=== PATIENT | male | born 2000 | race Caucasian/White ===

== ENCOUNTER 2024-04-18 22:38 | Emergency (ER) | payer OTHER, SELFPAY ==
[2024-04-18 22:40] VITALS: BP 148/88; PULSE 108; RESP 18; TEMP 36.9; O2SAT 100
--- OUTSIDE RECORDS SUMMARY | 2024-04-18 22:40 | XMS_ITS | Referral Summary ---
Author Organization [facility] [address] Address [address] [place] [address] Phone Care Team Providers Care Barrel Bung Remover And Dumper Name Role Phone Gabbie Lema MD Primary Care Provider [phone]- [phone] Allergies Active Allergy Reactions Criticality Noted Date Comments Amoxicillin-Pot Clavulanate Rash Medium 01/25/20 14 Medications ascorbic acid (VITAMIN C) 250 mg tablet Take 250 mg by mouth daily Active dexmethylphenid ate XR (FOCALIN XR) 20 mg 24 hr capsule Take 20 mg by mouth car repairman before breakfast 5 Active dicyclomine (BENTYL) 20 mg tablet Take 20 mg by mouth 4 (four) times a day [address] (NexIUM) 20 mg capsule Take 20 mg by mouth daily before breakfast 5 Active methylphenidate HCl (RITALIN) 10 mg tablet TK 1 T PO BID PRN 0 Active sertraline (ZOLOFT) 50 mg tablet Take two tablets daily by mouth 5 Active SUMAtriptan (IMITREX) 50 mg tablet Take 50 mg by mouth daily as needed 5 Active lisdexamfetamin e (VYVANSE) 20 mg capsule Take 20 mg by mouth 2 (two) times a day as needed Active Active Problems Problem Noted Date Diagnosed Date Irritable bowel syndrome with constipation 05/12 Assessment & Plan (05/12/2020 1:36 PM HEALTH SERVICES COORDINATOR): Years of consti-pation with occ BRB on TP assoc with generalized abd pain assoc with stress. 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 Currently he has been eating no fiber and has C with sensation of incomplete evac but has begun daily metamucil with great improvement in sx. Had long discussion on diet and advised fruit tid and return prn. Abdominal bloating 09/08/2014 Gastric regurgitation 09/08/2014 Abdominal pain, RLQ (right lower quadrant) 04/04 Anxiety 04/04/2014 Hematochezia 04/04/2014 Hemorrhoids 04/04/2014 Short stature 01/01/2014 Headache 10/30/2007 Social History Tobacco Use Types Packs/Day Years Used Date Smoking Tobacco: Smoker, Current Status Unknown Vaping Smokeless Tobacco: Current AUDIT-C Answer Date Recorded Q1: How often do you have a drink containing alc ohol? Monthly or less 05/12/2020 Average Number of Drinks Not on file 021 Frequency of Binge Drinking Not on file 04/21 Personal Safety Answer Date Recorded Getting School Help Needed Not on file 05/20 Sex and Gender Information Value Date Recorded Sex Assigned at Not on file Legal Sex Male 1:44 PM CDT Gender Identity Not on file Sexual Orientation Not on file Last Filed Vital Signs Vital Sign Reading Time Taken Comments Blood Pressure 122/80 05/12/2020 1:14 PM HEALTH SERVICES COORDINATOR Pulse 86 05/12/2020 1:14 PM HEALTH SERVICES COORDINATOR Temperature 35.8 ??C (96.4 ??F) 05/12/2020 1:14 PM CS T Respiratory Rate 16 05/12/2020 1:14 PM HEALTH SERVICES COORDINATOR Oxygen Saturation 98% 05/12/2020 1:14 PM HEALTH SERVICES COORDINATOR Inhaled Oxygen Concentration - - Weight 78.5 kg (173 lb) 05/12/2020 1:14 PM HEALTH SERVICES COORDINATOR Height 165.1 cm (5' 5 ) 05/12/2020 1:14 PM HEALTH SERVICES COORDINATOR Body Mass Index 28.79 05/12/2020 1:14 PM HEALTH SERVICES COORDINATOR Plan of Treatment Not on file Insurance [facility] CHOICE PLUS Care Teams Barrel Bung Remover And Dumper Relationship Specialty Start Date End Date Gabbie Lema MD PCP - General Internal Medicine 08/21/19
--- OUTSIDE RECORDS SUMMARY | 2024-04-18 22:40 | XMS_ITS | Continuity of Care Document ---
Author Organization [facility] Address [address] [facility] [place] [address] Phone Care Team Providers Care Senior Clinician Name Role Phone Rashel Grace MD Unavailable Unavailable Allergies, Adverse Reactions, Alerts Substance Reaction Status Criticality POTASSIUM CLAVULANATE Active No Inf ormation AMOXICILLIN TRIHYDRATE Active No In formation Medications Medication Instructions Dosage Effective Dates (start - stop) Status Comments Ritalin 10 mg tablet take 1 Tablet by oral route 2 times every day as needed 10 MG - Active take BID PRN for poor focus Procedures Procedure Date OFFICE/OUTPATIENT VISIT, EST PREV VISIT, EST, AGE 18-39 OFFICE/OUTPATIENT VISIT, EST OFFICE/OUTPATIENT VISIT, EST OFFICE/OUTPATIENT VISIT, EST PREV VISIT, EST, AGE 18-39 OFFICE/OUTPATIENT VISIT, EST OFFICE/OUTPATIENT VISIT, EST OFFICE/OUTPATIENT VISIT, EST OFFICE/OUTPATIENT VISIT, EST PREV VISIT, EST, AGE 18-39 PREV VISIT, NEW, AGE 18-39 Advance Directives Directive Yes / No Effective Date File Name No Information Encounters Encounter Description Practice Location Reason(s) For Visit Diagnoses Date Provider Providers Copied on Encounter OFFICE/OUTPA TIENT VISIT, EST [facility], [address] [place], [id number], [place] tel:[phone] [facility] Medicine ADD (chief complaint) Attention deficit Sanjay Hernandez [address], [place], [place], [address] , [place]. tel:[phone] PREV VISIT, EST, AGE 18-39 [facility], [address], [place], [place], [address], [place] tel:[phone] [facility] Medicine physical (chief complaint) Encounter for general adult medical examination without abnormal findings 4 Sanjay Kiser. [address], [place], [place], [id number] , [place]. tel:[phone] OFFICE/OUTPA TIENT VISIT, EST [facility], [address], [place], [place], [id number], [place] tel:[phone] [facility] Medicine HLP (chief complaint) ADD (chief complaint) weight gain1 (chief complaint) Abnormal weight gainMixed hyperlipidemiaAtten tion deficit 4 Sanjay Hernandez [address], [place], [place], [id number] , [place]. tel:[phone] OFFICE/OUTPA TIENT VISIT, EST [facility], [address], [place], [place], [address], [place] tel:[phone] [facility] ADD (chief complaint) Attention deficit 3 Sanjay Kiser. [address], [place], [place], [address] , [place]. tel:[phone] OFFICE/OUTPA TIENT VISIT, EST [facility], [address], [place], [place], [address], [place] tel:[phone] [facility] Medicine ADD (chief complaint) Attention deficit 3 Sanjay Kiser. [address], [place], [place], [address] , [place]. tel:[phone] PREV VISIT, EST, AGE 18-39 [facility], [address], [place], [place], [address], [place] tel:[phone] [facility] Medicine physical (chief complaint) Encounter for general adult medical examination without abnormal findings 3 Sanjay Kiser. [address], [place], [place], [address] , [place]. tel:[phone] OFFICE/OUTPA TIENT VISIT, [facility], [address], [place], [place], [address], [place] tel:[phone] [facility] depression 1 (chief complaint) chlamydia1 (chief complaint) Chlamydial cystitis and urethritisDepressio n 2 Sanjay Kiser. [address], [place], [place], [address] , [place]. tel:[phone] OFFICE/OUTPA TIENT VISIT, [facility], [address], [place], [place], [address], [place] tel:[phone] [facility] chlamydia1 (chief complaint) HLP (chief complaint) Mixed hyperlipidemiaChlam ydial cystitis and urethritis 2 Sanjay Kiser. [address], [place], [place], [address] , [place]. tel:[phone] OFFICE/OUTPA TIENT VISIT, [facility], [address], [place], [place], [address], [place] tel:[phone] [facility] urethra itching1 (chief complaint) ADD (chief complaint) Attention deficitViral wartUrethral disorderEncounter for STD screening 2 Sanjay Kiser. [address], [place], [place], [address] , [place]. tel:[phone] OFFICE/OUTPA TIENT VISIT, [facility], [address], [address], [place] tel:[phone] [facility] skin lesion1 (chief complaint) depression 1 (chief complaint) ADD (chief complaint) weight gain1 (chief complaint) Abnormal weight gainViral wartDepressionAtten tion deficit 2 Sanjay Kiser. [address], [place], [place], [address] , [place]. tel:[phone] PREV VISIT, EST, AGE 18-39 [facility], [address], [place], [place], [address], [phone] [facility] Medicine physical (chief complaint) Encounter for general adult medical examination without abnormal findings 2 Sanjay Kiser. [address], [place], [place], [address] , . tel:[phone] PREV VISIT, NEW, AGE 18-39 [facility], [address], [place], [place], [address], [place] [phone] [facility] Medicine physical (chief complaint) Encounter for general adult medical examination without abnormal findings 0 Sanjay Kiser. [address], [place], [place], [address] , . tel:[phone] Family History Family Member Type Diagnosis Age At Onset Father Problem unknown Sister Problem autism Mother Problem Pre-DM Mother Problem Seizure disorder Mother Problem bipolar depression Payers Payer name Insurance type Covered republican ID Authoriza tion(s) No Information Social History Type Description Quantity Date Captured Comments Alcohol Use Details beer & liquor Caffeine Use Details Unknown Tobacco Use Status Occasional tobacco smoker De Smoking Status Light tobacco smoker Sex Male Vital Signs Date / Time: Height Weight BMI Pulse Rate Blood Pressure Temperature Respiratory Rate Body Surface Area Head Circumference BMI percentile Pulse Ox Inhaled Ox 12:03 PM 65.00 in 199.80 lbs 33.2 5 kg/m eter (2) 91 /min 130/78 mm[Hg] 98.2 F 16 /min Chief Complaint And Reason For Visit From encounter dated '02/22/2024 12:02'. ADD (chief complaint). Description: Patient has ADD. Patient has inattentive type. Patient feels scatterbrained. Patient feel poor focus and difficulty completing tasks. Patient states that ritalin is helping with symptoms. Patient feels more focused. Pt feels more energy. Patient denies any headache, dry mouth, headache, chest pain. Patient denies any appetite loss. Plan Of Treatment Date Type Action Status Referral Ordered: Matt Aranda -Allopathic & Osteopathic Physicians : Surgery (related to Viral wart) ordered Referral Referred To: Matt Aranda [address] [place], [place], [id number] Ordered: Referrals: Allopathic & Osteopathic Physicians : Surgery. Matt Aranda. Evaluate and treat ordered Referral Ordered: COLONOSCOPY AND BIOPSY ordered History Of Present Illness Encounter Date Complaint History Of Prese nt Illness ADD Patient has ADD. Patient has inattentive type. Patient feels scatterbrained. Patient feel poor focus and difficulty completing tasks. Patient states that ritalin is helping with symptoms. Patient feels more focused. Pt feels more energy. Patient denies any headache, dry mouth, headache, chest pain. Patient denies any appetite loss. physical Pt needs annual physical Pt has ADD Pt is back in school now and he wants to restart ritalin, He only takes it PRN. 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 Pt overall feels fine Pt denies any active complaints HLP Pt has mild HLP Pt is working on diet and exercse ADD Patient has ADD. Patient has inattentive type. Patient feels scatterbrained. Patient feel poor focus and difficulty completing tasks. Patient states that Ritalin is helping with symptoms. Patient feels more focused. Pt feels more energy. Patient denies any headache, dry mouth, headache, chest pain. Patient denies any appetite loss. 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 Pt states that ritalin is helping his ADD weight gain1 Pt has been gain ing weight Pt has not been diet and exercising . ADD Patient has ADD. Patient has inattentive type. Patient feels scatterbrained. Patient feel poor focus and difficulty completing tasks. Patient states that ritalin is helping with symptoms. Patient feels more focused. Pt feels more energy. Patient denies any headache, dry mouth, headache, chest pain. Patient denies any appetite loss. Pt only take s it PRN ADD Patient has ADD. Patient has inattentive type. Patient feels scatterbrained. Patient feel poor focus and difficulty completing tasks. Patient states that ritalin is helping with symptoms. Patient feels more focused. Pt feels more energy. Patient denies any headache, dry mouth, headache, chest pain. Patient denies any appetite loss. 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 Pt was treated with two rounds of abx and finally cleared .Pt denies any urinary symptoms depression1 Pt has been feel ing depressed lately ,pt denies any suicidal or homicidal thought. Pt denies any crying spells. Pt has poor interests and he has difficulty getting out of bed to get stuff done. chlamydia Pt has chlamydia infection Pt notices mild urethra itching only pt denies any penile discharge. Pt does not have any STDS. Pt denies any abd pain HLP Pt has mild HLP. Pt started better diet recently ADD Pt has ADD. Pt o nly takes ritalin PRn and he has not been in school so he has not been taking it lately. urethra itching1 Pt c/o mild itc katie along the urethra for one week. 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 Pt denies any penile discharge or any drainage Pt denies any penile lesions Pt denies any urinary frequency or urgency or dysuria. Pt denies any rash. Pt wants STD check. Pt denies any fever, chill, flank pain. 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 Pt since has been feeling well in his mood. Pt denies any anxiety or depression or any suicidal or homicidal thought. pt denies any crying spells. he was only 15 years old during last tour and he was discharged as a result. He did have severe separation anxiety back then and he did want to go home while in the training. . He currently wants to re-enlist in the and he needs some kind of note from physician stating above so he is qualified to be re-enlisted. weight gain1 Pt has been gain ing weight Pt is not very physically active skin lesion1 Pt has a lesion on right wrist area for 2 months Pt denies pain. Pt has been picking on it a lot and sometimes causes some bleeding Pt failed Dr Campbell. Pt denies any size change ADD Pt only takes ri maris PRN Pt doing ok. physical Pt needs annual physical. Pt has chronic bowel issue for more than 10 years Pt feels the urge to have BM all the time and he notices either mucous stool vs very hard stool when he does go and sometimes he just pass gas. He notices a small hemorrhoid sometimes. Pt has been taking miralax for BM. Pt notices small amount of bright red blood per rectum very rarely. pt denies any abd pain, nausea, vomiting, GERD, early satiety, etc. Pt did not do colonoscopy. Pt states that he has been using metamucil and eating more fruits and his above GI symptoms resolved. Pt also has history of ADD. Pt takes ritalin PRn and doing well. Pt wants refill. Pt notices a small warty lesion right wrist area for one week and he has been using Dr. Campbell which made it worse. Pt notices the lesion became red and burning and painful since using Dr. Campbell. Pt notices some clear drainage. Pt denies any fever physical Pt needs annual physical. Pt has chronic bowel issue for more than 10 years Pt feels the urge to have BM all the time and he notices either mucous stool vs very hard stool when he does go and sometimes he just pass gas. He notices a small hemorrhoid sometimes. Pt has been taking miralax for BM. Pt notices small amount of bright red blood per rectum very rarely. pt denies any abd pain, nausea, vomiting, GERD, early satiety, etc Pt also has history of ADD with mild depression. Pt used to take vyvanse back in high school. Pt denies any depression or any suicidal thought. pt denies any crying spells. Pt thinks that his mild depression is due to inability to focus and concentrate. Pt denies any weight loss Instructions Date Instruction Additional Infor mation No Information Assessments Type Assessment Date assessment Attention deficit Mental Status Date Cognitive Assessment Orientation - [place] ed to time, place, person, situation.
--- OUTSIDE RECORDS SUMMARY | 2024-04-18 22:40 | XMS_ITS | Clinical Summary ---
Author Organization [facility] [address] Address [address] [place] [address] Phone Care Team Providers Care Road Crossing Guard Name Role Phone Gabbie Lema MD Primary Care Provider [phone] Allergies Active Allergy Reactions Criticality Noted Date Comments Amoxicillin-Pot Clavulanate Rash Medium 01/25/20 14 Medications ascorbic acid (VITAMIN C) 250 mg tablet Take 250 mg by mouth daily Active dexmethylphenid ate XR (FOCALIN XR) 20 mg 24 hr capsule Take 20 mg by mouth third miller before breakfast 5 Active dicyclomine (BENTYL) 20 [...] 05/12 Assessment & Plan (05/12/2020 1:36 PM ROPEMAN): Years of consti-pation with occ BRB on [...] Hemorrhoids 04/04/2014 Short stature 01/01/2014 Headache 10/30/2007 Surgical History Surgery Date Site/Laterality Comments TONSILECTOMY, ADENOIDECTOMY, BILATERAL MYRINGOTOMY AND TUBES Family History Medical History Relation Name Comments Crohn's disease Mother's Sister Relation Name Status Comments Mother's Sister Social History Tobacco Use Types Packs/Day Years [...] on file Sexual Orientation Not on file Obstetrics History Last Filed Vital Signs Vital Sign Reading Time Taken Comments Blood Pressure 122/80 05/12/2020 1:14 PM ROPEMAN Pulse 86 05/12/2020 1:14 PM ROPEMAN Temperature 35.8 ??C (96.4 ??F) 05/12/2020 1:14 PM CS T Respiratory Rate 16 05/12/2020 1:14 PM ROPEMAN Oxygen Saturation 98% 05/12/2020 1:14 PM ROPEMAN Inhaled Oxygen Concentration - - Weight 78.5 kg (173 lb) 05/12/2020 1:14 PM ROPEMAN Height 165.1 cm (5' 5 ) 05/12/2020 1:14 PM ROPEMAN Body Mass Index 28.79 05/12/2020 1:14 PM ROPEMAN Plan of Treatment Not on file Insurance [facility] CHOICE PLUS [facility] H[facility]PPO Address: [facility] [address] [place] [address] Crossing Guard Relationship Specialty Start Date End Date Gabbie Lema MD PCP - General Internal Medicine 08/21/19
--- OUTSIDE RECORDS SUMMARY | 2024-04-18 22:40 | XMS_ITS | Clinical Summary ---
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 Gender Identity Not on file Sexual Orientation Not on file Plan of Treatment Health Maintenance Due Date Last Done Comments Hepatitis C Virus (HCV) Screening 1998 TdaP Immunization 1998 Human Papillomavirus (HPV) Immunization (1 - Male 3-dose series) 2013 Hepatitis B Immunization (1 of 3 - 19+ 3-dose series) 2017 Influenza Immunization (#1) 2023 SARS-COV-2 Immunization ( - 2023- season) 2023 Respiratory Syncytial Virus (RSV) Immunization (Adult) (1 - 1-dose 75+ series) 2073 Meningococcal Immunization (ACWY) Aged Out No longer eligible based on patient's age to complete this topic Pneumococcal Immunization Combined Aged Out No longer eligible based on patient's age to complete this topic Rotavirus Immunization Aged Out No lo nger eligible based on patient's age to complete this topic
[2024-04-19 00:55] VITALS: BP 142/88; PULSE 88; RESP 16; O2SAT 98
--- OUTSIDE RECORDS SUMMARY | 2024-04-19 00:58 | XMS_ITS | Clinical Summary ---
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
--- OUTSIDE RECORDS SUMMARY | 2024-04-19 00:58 | XMS_ITS | Referral Summary ---
Author Organization [facility] [address] Address [address] [place] [address] Phone Care Team Providers Care Drafting Instructor Name Role Phone Gabbie Lema MD Primary Care Provider [phone]- [phone] Allergies Active Allergy Reactions Criticality Noted Date Comments Amoxicillin-Pot Clavulanate Rash Medium 01/25/20 14 Medications ascorbic acid (VITAMIN C) 250 mg tablet Take 250 mg by mouth daily Active dexmethylphenid ate XR (FOCALIN XR) 20 mg 24 hr capsule Take 20 mg by mouth hotshot superintendent before breakfast 5 Active dicyclomine (BENTYL) 20 [...] 05/12 Assessment & Plan (05/12/2020 1:36 PM FISH WARDEN): Years of consti-pation with occ BRB on [...] Comments Blood Pressure 122/80 05/12/2020 1:14 PM FISH WARDEN Pulse 86 05/12/2020 1:14 PM FISH WARDEN Temperature 35.8 ??C (96.4 ??F) 05/12/2020 1:14 PM CS T Respiratory Rate 16 05/12/2020 1:14 PM FISH WARDEN Oxygen Saturation 98% 05/12/2020 1:14 PM FISH WARDEN Inhaled Oxygen Concentration - - Weight 78.5 kg (173 lb) 05/12/2020 1:14 PM FISH WARDEN Height 165.1 cm (5' 5 ) 05/12/2020 1:14 PM FISH WARDEN Body Mass Index 28.79 05/12/2020 1:14 PM FISH WARDEN Plan of Treatment Not on file Insurance [facility] CHOICE PLUS [facility] H[facility]/PPO Address: [facility] [id number] [place] [id number] Care Teams Drafting Instructor Relationship Specialty Start Date End Date Gabbie Lema MD PCP - General Internal Medicine 08/21/19
--- OUTSIDE RECORDS SUMMARY | 2024-04-19 00:58 | XMS_ITS | Clinical Summary ---
Author Organization [facility] [address] Address [address] [place] [address] Phone Care Team Providers Care Comp Field Case Manager Name Role Phone Gabbie Lema MD Primary Care Provider +1- [phone] Allergies Active Allergy Reactions Criticality Noted Date Comments Amoxicillin-Pot Clavulanate Rash Medium 01/25/20 14 Medications ascorbic acid (VITAMIN C) 250 mg tablet Take 250 mg by mouth daily Active dexmethylphenid ate XR (FOCALIN XR) 20 mg 24 hr capsule Take 20 mg by mouth engine inspector before breakfast 5 Active dicyclomine (BENTYL) 20 [...] 05/12 Assessment & Plan (05/12/2020 1:36 PM HVAC SERVICE TECHNICIAN): Years of consti-pation with occ BRB on [...] Comments Blood Pressure 122/80 05/12/2020 1:14 PM HVAC SERVICE TECHNICIAN Pulse 86 05/12/2020 1:14 PM HVAC SERVICE TECHNICIAN Temperature 35.8 ??C (96.4 ??F) 05/12/2020 1:14 PM CS T Respiratory Rate 16 05/12/2020 1:14 PM HVAC SERVICE TECHNICIAN Oxygen Saturation 98% 05/12/2020 1:14 PM HVAC SERVICE TECHNICIAN Inhaled Oxygen Concentration - - Weight 78.5 kg (173 lb) 05/12/2020 1:14 PM HVAC SERVICE TECHNICIAN Height 165.1 cm (5' 5 ) 05/12/2020 1:14 PM HVAC SERVICE TECHNICIAN Body Mass Index 28.79 05/12/2020 1:14 PM HVAC SERVICE TECHNICIAN Plan of Treatment Not on file Insurance [facility] CHOICE PLUS Care Teams Comp Field Case Manager Relationship Specialty Start Date End Date Gabbie Lema MD PCP - General Internal Medicine 08/21/19
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
--- NOTE | 2024-04-19 01:14 | ED.SKABFB ---
HPI - Skin/Abscess/Foreign Bdy General Chief complaint: Skin/Abscess/Foreign Body Stated complaint: suspected food bolus or scratch in throat Time Seen by Provider: 04/19/24 00:51 Source: patient Mode of arrival: ambulatory Limitations: no limitations History of Present Illness HPI narrative: This is a 23-year-old male who presents to the ED for chief complaint of possible food bolus impaction today. Reports that he was choking on a piece of steak around 1930. Patient reports that he was trying multiple ways to cough up the steak and does feel like he was somewhat successful. States that he has still has a little bit of pain to the epigastrium but is feeling much better than earlier. Related Data Home Medications ?Medication ?Instructions ?Recorded ?Confirmed ?Last Taken ?Type methylphenidate HCl 10 mg tablet 10 mg PO DAILY 02/20/20 03/18/20 Unknown History (Ritalin) Allergies Allergy/AdvReac Type Severity Reaction Status Date / Time amoxicillin Allergy Intermediate RASH Verified 04/18/24 22:39 clavulanic acid Allergy Intermediate RASH Verified 04/18/24 22:39 Review of Systems Review of Systems: All systems as dictated in HPI ON LICENSE OF [facility] Past Medical History Medical History (Updated 04/19/24 @ 01:32 by Doug Kathleen PA-C) Blood in stool Mucus in stool Constipation Surgical History Surgical History (Updated 02/20/20 @ 10:46 by Lucie Ordoñez) History of tonsillectomy Social History Social History (Updated 02/20/20 @ 10:45 by Lucie Ordoñez) Smoking status: Light tobacco smoker Tobacco type: e-cigarettes/vaping Second hand tobacco smoke exposure: Yes Alcohol intake: current Drinks per week: 1 Substance use: current Substance use type: marijuana Last use: 02/12/2020 Living arrangements: with family Spiritual care concerns: No Exam Narrative: GENERAL: Well-appearing, well-nourished, and in no acute distress. HEAD: Normocephalic, atraumatic. EYES: PERRLA and EOMI. ENT: Nares clear, no rhinorrhea or epistaxis. Mucous membranes moist. Oropharynx without tonsillar hypertrophy exudate or other lesions. NECK: Supple. No adenopathy or masses. CHEST: No respiratory distress. Clear to auscultation. No wheezes rales or rhonchi HEART: Regular rate and rhythm. No murmur heard. Normal peripheral pulses. ABDOMEN: Soft, nontender, nondistended, normal active bowel sounds. MSK: Normal range of motion. No edema. SKIN: Warm, dry, no rash. NEURO: Alert and oriented x4. No focal deficits. PSYCH: Normal mood and affect. Course Vital Signs Vital signs: Vital Signs Temperature 98.4 F 04/18/24 22:40 Pulse Rate 108 H 04/18/24 22:40 Respiratory Rate 18 04/18/24 22:40 Blood Pressure 148/88 H 04/18/24 22:40 Pulse Oximetry 100 04/18/24 22:40 Oxygen Delivery Room Air 04/18/24 22:40 Temperature 98.4 F 04/18/24 22:40 Pulse Rate 88 04/19/24 00:55 Respiratory Rate 16 04/19/24 00:55 Blood Pressure 142/88 H 04/19/24 00:55 Pulse Oximetry 98 04/19/24 00:55 Oxygen Delivery Room Air 04/18/24 22:40 MDM - Skin/Abscess/Foreign Bdy MDM Narrative Medical decision making narrative: This is a 23-year-old male who presents to the ED for chief complaint of possible food bolus, however on my arrival patient is doing much better and feels that the issue was resolved. Vitals are normal. He does not have dysphagia. He is not drooling. He was given GI cocktail with good relief of his epigastric discomfort. Tolerating p.o. without difficulty. Patient will be discharged in stable condition. Supportive measures discussed and return precautions given. Patient is understanding and agreeable with plan for discharge with PCP follow-up. Discharge Plan Discharge Clinical Impression: Epigastric abdominal pain Patient Disposition: Home, Self-Care Condition: Stable Instructions: Antibiotic Form Additional Instructions: Your exam today is reassuring overall. Make sure to stay well hydrated and the symptoms should self resolve over the next couple of days. If you have any new or worsening symptoms please return to the ER for further evaluation. Patient Language: Macedonian Prescriptions: No Action methylphenidate HCl [Ritalin] 10 mg tablet 10 mg PO DAILY peg 3350-electrolytes [Golytely] 236-22.74-6.74 -5.86 gram recon soln 240 ml PO Q10M Qty: 4000 0RF Rx Instructions: until fecal effluent is clear; do not exceed a total volume ix2087 mL Follow-up/Referrals: Rashel Grace MD [Primary Care Provider] - Time of Disposition: 01:31
[2024-04-19] MEDS: BELLADONNA ALK/PHENOB ELIX 10 ML, MAG HYDROX/ALUMINUM HYD/SIMETH 30 ML, LIDOCAINE 2% VI... PO (02:08)
[2024-04-19 03:08] VITALS: BP 140/87; PULSE 83; RESP 14; O2SAT 99
== END 2024-04-19 03:09 | disposition home or self-care (01) ==
PROVIDERS: Emergency Provider Physician Assistant; PCP Emergency Medicine
DX: R10.13 Epigastric pain (principal); F17.290 Nicotine dependence, other tobacco product, uncomplicated
CPT/HCPCS: 99283; A9270